=== PATIENT | female | born 1985 | race Caucasian/White ===

== ENCOUNTER 2021-03-19 23:52 | Emergency (ER) | payer OTHER ==
[~2021-03-19] VITALS: Ht 172.7 cm; Wt 90.0 kg
[~2021-03-19 23:52] MED LIST: RNT150T PO; ocella PO
[2021-03-20 01:01] LABS: BASOPHILS % (AUTO) 0 % (0-10); EOSINOPHILS # (AUTO) 0.1 10^3/uL (0.0-0.3); EOSINOPHILS % (AUTO) 2 % (0-10); HEMATOCRIT 36 % (35-52); HEMOGLOBIN 12.2 g/dL (11.5-16.0); LYMPHOCYTES % (AUTO) 28 % (12-44); MEAN CORPUSCULAR HEMOGLOBIN 31 pg (25-34); MEAN CORPUSCULAR HGB CONC 34 g/dL (32-36); MEAN CORPUSCULAR VOLUME 90 fL (80-99); MEAN PLATELET VOLUME 9.9 fL (9.0-12.2); MONOCYTES # (AUTO) 0.4 10^3/uL (0.0-1.0); MONOCYTES % (AUTO) 6 % (0-12); NEUTROPHILS # (AUTO) 4.5 10^3/uL (1.8-7.8); NEUTROPHILS % (AUTO) 64 % (42-75); PLATELET COUNT 237 10^3/uL (130-400); WHITE BLOOD COUNT 7.1 10^3/uL (4.3-11.0)
--- NOTE | 2021-03-20 01:16 | ED GI ---
General Chief Complaint: Rect Problems Stated Complaint: POST OP COLONOSCOPY BLOOD IN URINE Nursing Triage Note: PATIENT STATES THAT THIS MORNING SHE HAD A COLONOSCOPY WITH POLYP REMOVAL AT [facility] IN [place]. SINCE THEN, SHE HAS HAD FOUR EPISODES OF RECTAL BLEEDING. SHE DID RETURN TO [facility] ER AND LEFT AFTER BEING TOLD IT WOULD BE AN 8 HOUR WEIGHT. Source of Information: Patient Exam Limitations: No Limitations History of Present Illness Date Seen by Provider: Mar 20, 2021 Time Seen by Provider: 00:11 Initial Comments Patient presents ER by private conveyance from [facility] ER with chief complaint that she had waited for 5 hours to be seen and had not been seen yet. She is not having any pain but is having bright red bloody stools since this afternoon. This morning, [address] she had a colonoscopy by lip cutter at [facility]. She has had several colonoscopies in the past. She had 1 polyp removed. She is not on blood thinners NSAIDs or with any history of bleeding disorders. She noticed some bright red blood in the stool and had 2 more stools afterwards while she was in the ER waiting to be seen. She says they were smaller than the initial stool. She has an IUD for the past 2 years. No abdominal surgeries. No pain or distress. No shortness of air. She called her lip cutter's office and spoke to a nurse who told her she would need to be evaluated in the ER. Allergies and Home Medications Patient Home Medication List Home Medication List Reviewed: Yes Ranitidine Hcl (Zantac 150 Mg) 150 Mg Tablet, 1 TAB PO BID Prescribed by: ALKA CLARK on 12/28/09 0014 [ocella] TAB, 1 EACH PO DAILY, (Reported) Entered as Reported by: RANDOLPH OLIVER on 12/27/092228 Review of Systems Review of Systems Constitutional: No chills, No diaphoresis EENTM: No Blurred Vision, No Double Vision Respiratory: Denies Cough, Denies Orthopnea Gastrointestinal: Denies Abdomen Distended, Denies Abdominal Pain, Denies Constipated, Denies Diarrhea, Denies Nausea; Rectal Bleeding Genitourinary: Denies Burning, Denies Drainage Musculoskeletal: No back pain, No joint pain All Other Systems Reviewed Negative Unless Noted: Yes Past Cchymip-Nkrmfg-Pygvkz Hx Patient Social History Tobacco Use?: No Use of E-Cig and/or Vaping dev: No Substance use?: No Physical Exam Vital Signs Vital Signs - First Documented 03/19/21 23:55 Temp 36.9 Pulse 84 Resp 16 B/P (MAP) 144/108 (120) Pulse Ox 98 O2 Delivery Room Air Capillary Refill : Less Than 3 Seconds Height/Weight/BMI Height: '" Weight: lbs. oz. kg; 30.00 BMI Method: General Appearance: WD/WN, no apparent distress HEENT: PERRL/EOMI, pharynx normal Neck: full range of motion, supple, normal inspection Respiratory: lungs clear, normal breath sounds, no respiratory distress, no accessory muscle use Cardiovascular: normal peripheral pulses, regular rate, rhythm Peripheral Pulses: 2+ Dorsalis Pedis (R), 2+ Left Dors-Pedis (L) Gastrointestinal: normal bowel sounds, non tender, soft, no organomegaly Extremities: normal inspection, normal capillary refill Neurologic/Psychiatric: alert, normal mood/affect, oriented x 3 Progress/Results/Core Measures Results/Orders Lab Results Laboratory Tests Test 03/20/21 00:33 Range/Units White Blood Count 7.1 4.3-11.0 10^3/uL Red Blood Count 3.98 3.80-5.11 10^6/uL Hemoglobin 12.2 11.5-16.0 g/dL Hematocrit 36 35-52 % Mean Corpuscular Volume 90 80-99 fL Mean Corpuscular Hemoglobin 31 25-34 pg Mean Corpuscular Hemoglobin Concent 34 32-36 g/dL Red Cell Distribution Width 12.7 10.0-14.5 % Platelet Count 237 130-400 10^3/uL Mean Platelet Volume 9.9 9.0-12.2 fL Immature Granulocyte % (Auto) 0 % Neutrophils (%) (Auto) 64 42-75 % Lymphocytes (%) (Auto) 28 12-44 % Monocytes (%) (Auto) 6 0-12 % Eosinophils (%) (Auto) 2 0-10 % Basophils (%) (Auto) 0 0-10 % Neutrophils # (Auto) 4.5 1.8-7.8 10^3/uL Lymphocytes # (Auto) 2.0 1.0-4.0 10^3/uL Monocytes # (Auto) 0.4 0.0-1.0 10^3/uL Eosinophils # (Auto) 0.1 0.0-0.3 10^3/uL Basophils # (Auto) 0.0 0.0-0.1 10^3/uL Immature Granulocyte # (Auto) 0.0 0.0-0.1 10^3/uL My Orders Orders - ALESSANDRA SCHRADER Abdomen/Kub 1view (03/20/21 00:42) Cbc With Automated Diff (03/20/21 00:42) Vital Signs/I&O 03/19/21 03/20/21 23:55 01:25 Temp 36.9 36.1 Pulse 84 74 Resp 16 20 B/P (MAP) 144/108 (120) 130/87 Pulse Ox 98 100 O2 Delivery Room Air Room Air Blood Pressure Mean: 120 Progress Progress Note : Time: 01:13 Progress Note Hemoglobin is okay. KUB does not show any free air. There is a clip in the right ascending colon. Fecal occult blood test positive. Diagnostic Imaging Diagonstic Imaging: Xray Plain Films/CT/US/NM/MRI: abdomen, pelvis Comments [facility], [place] NAME: PRISCA GALVEZ [facility] REC#: [id number] PT STATUS: DEP ER : 1985 PHYSICIAN: ALESSANDRA SCHRADER MD ADMIT DATE: 03/20/21/ER Signed Date of Exam:03/20/21 ABDOMEN/KUB 1VIEW INDICATION: Rectal bleeding, abdominal pain. COMPARISON: None. FINDINGS: Single view of the abdomen demonstrates nondistended bowel gas pattern. A endoscopic marker seen in the proximal colon. There is an IUD present. No large pocket of free air seen. IMPRESSION: Negative KUB. Dictated by: Dictated on workstation # [id number] Dict: 03/20/21 0714 Trans: 03/20/21 1117 [id number] Interpreted by: JENNIFER PRATT Electronically signed by: JENNIFER PRATT 03/20/21 1117 Reviewed: Reviewed by Me Departure Impression Primary Impression: Rectal bleeding Additional Impression: Status post colonoscopy with polypectomy Disposition: HOME, SELF-CARE Condition: Stable Departure-Patient Inst. Decision time for Depature: 01:15 Referrals: LYLE,MIKKI B DO (PCP/Family) Primary Care Physician Patient Instructions: Bloody Stools, Adult (DC) Add. Discharge Instructions: Drink plenty of fluids. The bleeding should slow down over the next 2 to 3 days. Do not use NSAIDs such as ibuprofen Aleve aspirin. Tylenol is okay. Your hemoglobin is 12.8 which is normal. In the morning call your lip cutter for recommendations. Return to the nearest ER promptly if you are having chest pain, shortness of air or other worrisome symptoms. All discharge instructions reviewed with patient and/or family. Voiced understanding. Work/School Note: Work Release Form Date Seen in the Emergency Department: Mar 20, 2021 Return to Work: Mar 21, 2021 Restrictions: No Restrictions ALESSANDRA SCHRADER Mar 20, 2021 01:16
[2021-03-20 01:25] VITALS: BP 130/87
--- NOTE | 2021-03-20 07:18 | Diagnostic Imaging Report ---
INDICATION: Rectal bleeding, abdominal pain. COMPARISON: None. FINDINGS: Single view of the abdomen demonstrates nondistended bowel gas pattern. A endoscopic marker seen in the proximal colon. There is an IUD present. No large pocket of free air seen. IMPRESSION: Negative KUB. Dictated by: Dictated on workstation # [id number]
== END 2021-03-20 01:28 | disposition home or self-care (01) ==
LOC: EDUNIT# 23:52 → ER 03-20
DX: K62.5 Hemorrhage of anus and rectum (principal); Z86.010 Personal history of colon polyps
CPT/HCPCS: 36415; 74018; 85025